=== PATIENT | male | born 1980 | race Caucasian/White ===

== ENCOUNTER 2017-07-13 03:41 | Observation (INO) | payer BC ==
[~2017-07-13] VITALS: Ht 182.9 cm; Wt 82.7 kg
[2017-07-13 03:49] VITALS: BP 110/70; PULSE 70; RESP 16; O2SAT 95
[2017-07-13 03:59] VITALS: BP 117/63; PULSE 85; RESP 16; O2SAT 95
--- NOTE | 2017-07-13 03:59 | PD ---
HPI Chief Complaint: Chest Pain Time Seen by Provider: 03:47 Travel History International Travel<30 days: No Contact w/Intl Traveler<30days: No Traveled to known affect area: No History of Present Illness HPI [place] [employer] [place] patient developed left-sided chest pain. Described as sharp, relieved by pressing on it rated as a 8 out of 10, patient has a history of smoking cigarettes and occasional alcohol drinking which was undertaken today during the festival. Patient was picked up by EMS and given aspirin, nitro sublingual which improved pain and the rate is down to 2 out of 10 No known drug allergies Smokes 1 pack a day cigarettes, occasional marijuana, daily alcohol use. Only significant past surgical history is vikash in the right leg and the left leg fibroma removed [facility] Social History Tobacco Use: No Allergies-Medications (Allergen,Severity, Reaction): Coded Allergies: No Known Allergies (Unverified , 07/13/17) Reported Meds & Prescriptions Reported Meds & Active Scripts Active No Active Prescriptions or Reported Medications Review of Systems General / Constitutional: No: Fever Eyes: No: Visual changes HENT: No: Headaches Cardiovascular: Positive: Chest Pain or Discomfort Respiratory: No: Shortness of Breath Gastrointestinal: No: Abdominal Pain Genitourinary: No: Dysuria Musculoskeletal: No: Pain Skin: No Rash Neurologic: No: Weakness Psychiatric: No: Depression Endocrine: No: Polydipsia Hematologic/Lymphatic: No: Easy Bruising Physical Exam Narrative GENERAL: SKIN: Warm and dry. HEAD: Atraumatic. Normocephalic. EYES: Pupils equal and round. No scleral icterus. No injection or drainage. ENT: No nasal bleeding or discharge. Mucous membranes pink and moist. NECK: Trachea midline. No JVD. CARDIOVASCULAR: Regular rate and rhythm. RESPIRATORY: No accessory muscle use. Clear to auscultation. Breath sounds equal bilaterally. GASTROINTESTINAL: Abdomen soft, non-tender, nondistended. MUSCULOSKELETAL: Extremities without clubbing, cyanosis, or edema. No obvious deformities. NEUROLOGICAL: Awake and alert. No obvious cranial nerve deficits. Motor grossly within normal limits. Five out of 5 muscle strength in the arms and legs. Normal speech. PSYCHIATRIC: Appropriate mood and affect; insight and judgment normal. Data Data Last Documented VS Orders Orders Electrocardiogram (07/13/17 03:47) B-Type Natriuretic Peptide (07/13/17 03:47) Ckmb (Isoenzyme) Profile (07/13/17 03:47) Complete Blood Count With Diff (07/13/17 03:47) Comprehensive Metabolic Panel (07/13/17 03:47) D-Dimer (07/13/17 03:47) Prothrombin Time / Inr (Pt) (07/13/17 03:47) Act Partial Throm Time (Ptt) (07/13/17 03:47) Troponin I (07/13/17 03:47) Lipase (07/13/17 03:47) Chest, Single Ap (07/13/17 03:47) Ecg Monitoring (07/13/17 03:47) Bilateral Bp Monitoring (07/13/17 03:47) Iv Access Insert/Monitor (07/13/17 03:47) Oximetry (07/13/17 03:47) CKMB (07/13/17 04:00) CKMB% (07/13/17 04:00) Drug Screen, Random Urine (07/13/17 05:13) Alcohol (Ethanol) (07/13/17 05:13) Salicylates (Aspirin) (07/13/17 05:13) Tylenol (Acetaminophen) (07/13/17 05:13) Aspirin Chew (Aspirin Chew) (07/13/17 05:45) Morphine Inj (Morphine Inj) (07/13/17 05:45) Nitroglycerin 2% Oint (Nitroglycerin 2% (07/13/17 05:45) Sodium Chlorid 0.9% 500 Ml Inj (Ns 500 M (07/13/17 05:45) Admit Order (Ed Use Only) (07/13/17 05:56) Labs Laboratory Tests Test 07/13/17 04:00 White Blood Count 10.9 TH/MM3 Red Blood Count 5.24 MIL/MM3 Hemoglobin 16.1 GM/DL Hematocrit 47.1 % Mean Corpuscular Volume 89.8 FL Mean Corpuscular Hemoglobin 30.8 PG Mean Corpuscular Hemoglobin Concent 34.3 % Red Cell Distribution Width 14.1 % Platelet Count 261 TH/MM3 Mean Platelet Volume 6.9 FL Neutrophils (%) (Auto) 36.2 % Lymphocytes (%) (Auto) 48.4 % Monocytes (%) (Auto) 7.1 % Eosinophils (%) (Auto) 7.6 % Basophils (%) (Auto) 0.7 % Neutrophils # (Auto) 3.9 TH/MM3 Lymphocytes # (Auto) 5.3 TH/MM3 Monocytes # (Auto) 0.8 TH/MM3 Eosinophils # (Auto) 0.8 TH/MM3 Basophils # (Auto) 0.1 TH/MM3 CBC Comment AUTO DIFF Differential Total Cells Counted 100 Neutrophils % (Manual) 37 % Lymphocytes % 46 % Monocytes % 4 % Eosinophils % 9 % Basophils % 3 % Neutrophils # (Manual) 4.1 TH/MM3 Myelocytes 1 % Differential Comment FINAL DIFF MANUAL Platelet Estimate NORMAL Platelet Morphology Comment NORMAL Prothrombin Time 9.6 SEC Prothromb Time International Ratio 0.9 RATIO Activated Partial Thromboplast Time 27.3 SEC D-Dimer Quantitative (PE/DVT) 0.36 MG/L FEU Blood Urea Nitrogen 10 MG/DL Creatinine 0.95 MG/DL Random Glucose 101 MG/DL Total Protein 7.6 GM/DL Albumin 3.9 GM/DL Calcium Level 7.8 MG/DL Alkaline Phosphatase 60 U/L Aspartate Amino Transf (AST/SGOT) 27 U/L Alanine Aminotransferase (ALT/SGPT) 39 U/L Total Bilirubin 0.2 MG/DL Sodium Level 144 MEQ/L Potassium Level 3.7 MEQ/L Chloride Level 111 MEQ/L Carbon Dioxide Level 19.2 MEQ/L Anion Gap 14 MEQ/L Estimat Glomerular Filtration Rate 91 ML/MIN Total Creatine Kinase 386 U/L Creatine Kinase MB 4.4 NG/ML Creatine Kinase MB % 1.1 % Troponin I LESS THAN 0.02 NG/ML B-Type Natriuretic Peptide 12 PG/ML Lipase 379 U/L Salicylates Level 5.2 MG/DL Acetaminophen Level LESS THAN 2.0 MCG/ML Ethyl Alcohol Level 294 MG/DL [facility] Medical Decision Making Medical Screen Exam Complete: Yes Emergency Medical Condition: Yes Medical Record Reviewed: Yes Interpretation(s) Pulse ox with excellent pleth wave, reads on room air to 97 and 100 which is all within normal limits and does not show any evidence of hypoxemia EKG shows normal sinus rhythm, 70 bpm, incomplete right bundle branch block pattern noted, no evidence of any ST elevation [place] noted Differential Diagnosis Pneumonia versus pneumothorax versus STEMI versus non-STEMI versus PE versus chest wall Narrative Course No leukocytosis, no anemia, normal platelet count, mild lymphocytosis of 48% Coagulations within normal limits D-dimer is negative Electrolytes are all within normal limits Normal liver and pancreatic functions Negative troponin, normal beta natruretic peptide All findings discussed with patient and significant other, the patient was recommended to stay be placed in the chest pain center however the patient did not want to stay, despite the family member also attempting to get him to stay. AMA: The risks of leaving against medical advice without further evaluation treatment were discussed with the patient. These risks include cardiac dysfunction, cardiac dysrhythmia, possible heart attack, possible stroke or . The patient indicated understanding of these risks and appeared to have the capacity to make this decision. Diagnosis Primary Impression: Atypical chest pain Additional Impression: AMA Scripts No Active Prescriptions or Reported Meds Disposition: 07 AGAINST MEDICAL ADVICE Haroon Dean MD July 13, 2017 03:59
[2017-07-13 04:18] LABS: AUTOMATED NEUTROPHIL # 3.9 TH/MM3 (1.8-7.7); BASOPHIL # 0.1 TH/MM3 (0-0.2); BASOPHIL % 0.7 % (0.0-2.0); EOSINOPHIL # 0.8 TH/MM3 (0-0.4); EOSINOPHIL % 7.6 % (0.0-4.0); HEMATOCRIT 47.1 % (39.0-51.0); HEMOGLOBIN 16.1 GM/DL (13.0-17.0); LYMPH % 48.4 % (9.0-44.0); LYMPHOCYTE # 5.3 TH/MM3 (1.0-4.8); MEAN CELL VOLUME 89.8 FL (80.0-100.0); MEAN CORPUSCULAR HEMOGLOBIN 30.8 PG (27.0-34.0); MEAN CORPUSCULAR HGB CONC 34.3 % (32.0-36.0); MEAN PLATELET VOLUME 6.9 FL (7.0-11.0); MONO % 7.1 % (0.0-8.0); MONOCYTE # 0.8 TH/MM3 (0-0.9); NEUT % 36.2 % (16.0-70.0); PLATELET COUNT 261 TH/MM3 (150-450); RED BLOOD COUNT 5.24 MIL/MM3 (4.50-5.90); RED CELL DISTRIBUTION WIDTH 14.1 % (11.6-17.2); WHITE BLOOD COUNT 10.9 TH/MM3 (4.0-11.0)
--- NOTE | 2017-07-13 04:22 | RADRPT ---
EXAM DATE: 07/13/2017 4:12 AM EDT AGE/SEX: 36 years / Male INDICATIONS: Chest pain. CLINICAL DATA: This is the patient's initial encounter. Patient reports that signs and symptoms have been present for 1 day and indicates a pain score of 7/10. MEDICAL/SURGICAL HISTORY: None. None. COMPARISON: No prior [place] exams available for comparison. FINDINGS: A single AP view of the chest demonstrates the lungs to be symmetrically aerated without evidence of mass, infiltrate or effusion. The cardiomediastinal contours are unremarkable. Osseous structures a re intact. CONCLUSION: No evidence of acute cardiopulmonary disease. Electronically signed by: Marco Antonio Rock MD 07/13/2017 4:20 AM EDT
[2017-07-13 04:28] LABS: INTERNATIONAL NORMALIZED RATIO 0.9 RATIO; PROTHROMBIN TIME - PATIENT 9.6 SEC (9.8-11.6)
[2017-07-13 04:29] LABS: D-DIMER 0.36 MG/L FEU (0.00-0.50)
[2017-07-13 04:41] LABS: ALBUMIN 3.9 GM/DL (3.4-5.0); ALT (GPT) 39 U/L (12-78); AST (GOT) 27 U/L (15-37); BICARBONATE 19.2 MEQ/L (21.0-32.0); BLOOD UREA NITROGEN 10 MG/DL (7-18); CALCIUM 7.8 MG/DL (8.5-10.1); CHLORIDE 111 MEQ/L (98-107); CREATININE 0.95 MG/DL (0.60-1.30); GLOMERULAR FILTRATION RATE 91 ML/MIN (>89); GLUCOSE,RANDOM 101 MG/DL (74-106); SODIUM (NA) 144 MEQ/L (136-145)
[2017-07-13 04:45] LABS: ALKALINE PHOSPHATASE 60 U/L (45-117); TOTAL BILIRUBIN ADULT 0.2 MG/DL (0.2-1.0); TOTAL PROTEIN 7.6 GM/DL (6.4-8.2); TROPONIN I LESS THAN 0.02 NG/ML (0.02-0.05)
[2017-07-13 04:56] LABS: BASOPHILS 3 % (0-2); LYMPHOCYTES 46 % (9-44); MONOCYTES 4 % (0-8); MYELOCYTES 1 % (0-0); NEUTROPHIL # MANUAL DIFF 4.1 TH/MM3 (1.8-7.7); POLYS (SEG NEUTROPHILS) 37 % (16-70)
[2017-07-13] MEDS ORDERED: ASPIRIN 81 MG CHEW TAB PO ONE ×2 (05:45→06:15)
[2017-07-13] MEDS ORDERED: MORPHINE SULFATE 4 MG/ML INJ IV PUSH ONE (05:45)
[2017-07-13] MEDS ORDERED: NITROGLYCERIN 2% OINT 1 GM PACKET TOP ONE (05:45)
[2017-07-13] MEDS ORDERED: SODIUM CHLORID 0.9% 500 ML INJ 500 ML IV ONE (05:45)
[2017-07-13] MEDS ORDERED: NICOTINE 21 MG/24 HR PATCH T-DERMAL ONE (06:15)
[2017-07-13] MEDS ORDERED: NITROGLYCERIN 0.4 MG SL 25 TABS/BTL SL PRN (06:15)
[2017-07-13] MEDS ORDERED: MORPHINE SULFATE 4 MG/ML INJ IV PUSH PRN (06:15)
[2017-07-13] MEDS ORDERED: SODIUM CHLORIDE 0.9% FLUSH 10 ML FLUSH IV FLUSH PRN (06:15)
[2017-07-13 06:27] VITALS: BP 120/80; PULSE 87; RESP 16; RESP 17; O2SAT 97
[2017-07-13 06:34] LABS: ACETAMINOPHEN LESS THAN 2.0 MCG/ML (10.0-30.0)
[2017-07-13 07:34] VITALS: BP 111/75; PULSE 74; RESP 21; O2SAT 96
[2017-07-13] MEDS ORDERED: SODIUM CHLORIDE 0.9% FLUSH 10 ML FLUSH IV FLUSH SCH (09:00)
[2017-07-13] MEDS ORDERED: SODIUM CHLOR 0.9% 1000 ML INJ 1,000 ML IV ONE (09:27)
--- NOTE | 2017-07-13 09:29 | HHI.HP ---
HPI Primary Care Physician Unknown Chief Complaint Chest pain History of Present Illness This is a 36-year-old male that presents to ED via [facility] with complaint of chest discomfort that began around midnight. States he is here for the [employer] music festival. States he has been drinking a lot of alcohol. His alcohol level in the ED was 294. But states he was doing nothing exertional when left upper chest discomfort began. States it is a stabbing discomfort when it is at a higher level but it is an ache at a lower level. The discomfort has never resolved. He has been constant. Initially the discomfort would improve when he would press against the area but states he has pressed together so much that now the area is sore. Denies shortness of breath, nausea, or diaphoresis. Review of Systems General: Patient denies fevers, chills, and recent travel. HEENT: Patient denies headache, sore throat, difficulty swallowing. Cardiovascular: Has the chest discomfort as mentioned above. Denies sensation of heart beating rapidly or irregularly. No syncope. Respiratory: Denies shortness of breath or inspirational chest discomfort. Denies coughing wheezing or hemoptysis. GI: Patient denies nausea, vomiting, diarrhea, abdominal pain, bloody stools. Musculoskeletal: Patient denies joint pain or edema. Denies calf pain or edema. Neurovascular: Patient denies numbness, tingling, weakness in extremities. Denies headache. Endocrine: Denies polyuria and polydipsia. Hematologic: Denies easy bruising. Skin: Denies rash or itching. Past Family Social History Allergies: Coded Allergies: No Known Allergies (Unverified , 07/13/17) Past Medical History Tobacco abuse. Alcohol abuse. Denies hypertension, hyperlipidemia, diabetes, and CAD. Past Surgical History Denies prior surgeries. Reported Medications Reported Meds & Active Scripts Active No Active Prescriptions or Reported Medications Active Ordered Medications Current Medications Medications (Trade) Dose Ordered Sig/Iris Route Start Time Stop Time Status Last Admin (NS Flush) 2 ml UNSCH PRN IV FLUSH 07/13/17 06:15 (NS Flush) 2 ml BID IV FLUSH 07/13/17 09:00 (Morphine Inj) 2 mg Q4H PRN IV PUSH 07/13/17 06:15 07/13/17 07:40 (Nitrostat Sl) 0.4 mg Q5M PRN SL 07/13/17 06:15 Family History Denies family history of CAD. Social History Smokes 1 pack of cigarettes daily for 20 years. Has an average 6 beers per day but states he drank more last evening at the [employer] festival. His alcohol level is 294. States he smokes marijuana daily. Denies other illicit drugs. Physical Exam Vital Signs Vital Signs Date Time Temp Pulse Resp B/P (MAP) Pulse Ox O2 Delivery O2 Flow Rate FiO2 07/13/17 07:34 74 21 111/75 (87) 96 Room Air 07/13/17 06:27 17 97 Room Air 07/13/17 06:27 87 16 120/80 (93) 97 Room Air 07/13/17 03:59 85 16 117/63 (81) 95 Room Air 07/13/17 03:49 70 16 110/70 (83) 95 Physical Exam GENERAL: This is a well-nourished, well-developed patient, in no apparent distress. Patient speaks in clear complete sentences. Patient is pleasant. HEENT: Head is atraumatic and normocephalic. Neck is supple without lymphadenopathy and trachea is midline. No JVD or carotid bruits. CARDIOVASCULAR: Regular rate and rhythm without murmurs, gallops, or rubs. RESPIRATORY: He has diffuse wheezing and scattered rhonchi. Breath sounds equal bilaterally. No rales. Chest wall is nontender. No use of accessory muscles. GASTROINTESTINAL: Abdomen is nontender, nondistended. Abdomen soft. No obvious pulsatile mass or bruit. No CVA tenderness. Strong femoral pulses bilaterally. Normal bowel sounds in all quadrants. MUSCULOSKELETAL: Patient is moving upper and lower extremities freely. No calf tenderness or edema, no Homans sign. Strong pulses in upper and lower extremities. NEUROLOGICAL: Patient is alert and oriented. Cranial nerves 2-12 are grossly intact. No focal deficits and speech is clear. SKIN: No rash and turgor is normal. Laboratory Laboratory Tests Test 07/13/17 04:00 07/13/17 07:00 White Blood Count 10.9 Red Blood Count 5.24 Hemoglobin 16.1 Hematocrit 47.1 Mean Corpuscular Volume 89.8 Mean Corpuscular Hemoglobin 30.8 Mean Corpuscular Hemoglobin Concent 34.3 Red Cell Distribution Width 14.1 Platelet Count 261 Mean Platelet Volume 6.9 Neutrophils (%) (Auto) 36.2 Lymphocytes (%) (Auto) 48.4 Monocytes (%) (Auto) 7.1 Eosinophils (%) (Auto) 7.6 Basophils (%) (Auto) 0.7 Neutrophils # (Auto) 3.9 Lymphocytes # (Auto) 5.3 Monocytes # (Auto) 0.8 Eosinophils # (Auto) 0.8 Basophils # (Auto) 0.1 CBC Comment AUTO DIFF Differential Total Cells Counted 100 Neutrophils % (Manual) 37 Lymphocytes % 46 Monocytes % 4 Eosinophils % 9 Basophils % 3 Neutrophils # (Manual) 4.1 Myelocytes 1 Differential Comment FINAL DIFF MANUAL Platelet Estimate NORMAL Platelet Morphology Comment NORMAL Prothrombin Time 9.6 Prothromb Time International Ratio 0.9 Activated Partial Thromboplast Time 27.3 D-Dimer Quantitative (PE/DVT) 0.36 Blood Urea Nitrogen 10 Creatinine 0.95 Random Glucose 101 Total Protein 7.6 Albumin 3.9 Calcium Level 7.8 Alkaline Phosphatase 60 Aspartate Amino Transf (AST/SGOT) 27 Alanine Aminotransferase (ALT/SGPT) 39 Total Bilirubin 0.2 Sodium Level 144 Potassium Level 3.7 Chloride Level 111 Carbon Dioxide Level 19.2 Anion Gap 14 Estimat Glomerular Filtration Rate 91 Total Creatine Kinase 386 Creatine Kinase MB 4.4 Creatine Kinase MB % 1.1 Troponin I LESS THAN 0.02 LESS THAN 0.02 B-Type Natriuretic Peptide 12 Lipase 379 Salicylates Level 5.2 Acetaminophen Level LESS THAN 2.0 Ethyl Alcohol Level 294 Result Diagram: 07/13/17 0400 07/13/17 0400 Imaging Last 48 hours Impressions Chest X-Ray 07/13/17 0347 Signed Impressions: CONCLUSION: No evidence of acute cardiopulmonary disease. Course EKS RBBB without significant ST segment depressions or elevations. Caprini VTE Risk Assessment Caprini VTE Risk Assessment: No/Low Risk (score <= 1) Caprini Risk Assessment Model Point Value = 1 Point Value = 2 Point Value = 3 Point Value = 5 Age 41-60 Minor surgery BMI > 25 kg/m2 Swollen legs Varicose veins or History of unexplained or recurrent spontaneous Oral contraceptives or hormone replacement Sepsis (< 1 month) Serious lung disease, including pneumonia (< 1 month) Abnormal pulmonary function Acute myocardial infarction Congestive heart failure (< 1 month) History of inflammatory bowel disease Medical patient at bed rest Age 61-74 Arthroscopic surgery Major open surgery (> 45 min) Laparoscopic surgery (> 45 min) Malignancy Confined to bed (> 72 hours) Immobilizing plaster cast Central venous access Age >= 75 History of VTE Family history of VTE Factor V Leiden Prothrombin 56514H Lupus anticoagulant Anticardiolipin antibodies Elevated serum homocysteine Heparin-induced thrombocytopenia Other congenital or acquired thrombophilia Stroke (< 1 month) Elective arthroplasty Hip, pelvis, or leg fracture Acute spinal cord injury (< 1 month) Prophylaxis Regimen Total Risk Factor Score Risk Level Prophylaxis Regimen 0-1 Low Early ambulation 2 Moderate Order ONE of the following: *Sequential Compression Device (SCD) *Heparin 5000 units SQ BID 3-4 Higher Order ONE of the following medications: *Heparin 5000 units SQ TID *Enoxaparin/Lovenox 40 mg SQ daily (WT < 150 kg, CrCl > 30 mL/min) *Enoxaparin/Lovenox 30 mg SQ daily (WT < 150 kg, CrCl > 10-29 mL/min) *Enoxaparin/Lovenox 30 mg SQ BID (WT < 150 kg, CrCl > 30 mL/min) AND/OR *Sequential Compression Device (SCD) 5 or more Highest Order ONE of the following medications: *Heparin 5000 units SQ TID (Preferred with Epidurals) *Enoxaparin/Lovenox 40 mg SQ daily (WT < 150 kg, CrCl > 30 mL/min) *Enoxaparin/Lovenox 30 mg SQ daily (WT < 150 kg, CrCl > 10-29 mL/min) *Enoxaparin/Lovenox 30 mg SQ BID (WT < 150 kg, CrCl > 30 mL/min) AND *Sequential Compression Device (SCD) Assessment and Plan Assessment and Plan * Chest pain: Patient will serial cardiac enzymes and EKGs for ruling out purposes. He will be seen by Dr. Ledbetter of cardiology in the chest pain center. Likely undergo a Osvaldo protocol ETT. Patient will be discharged home if the stress test is nonischemic with instructions to follow-up with PCP. Patient was given duo nebs prior to treadmill. Return to ED for interval issues. * Tobacco abuse: Patient has been counseled on the importance of smoking cessation. Patient is stable at this time. He is agreeable to this plan. Billy De La Torre July 13, 2017 09:29
[2017-07-13] MEDS ORDERED: cloNIDine HCL 0.1 MG TAB PO PRN (09:30)
[2017-07-13] MEDS ORDERED: RESP: ALBUTEROL 2.5 MG/IPRATROPIUM 0.5 MG NEB (SCH) INH ONE (09:30)
[2017-07-13] MEDS ORDERED: ALPRAZolam 0.25 MG TAB PO PRN (10:30)
--- NOTE | 2017-07-13 12:36 | TR ---
Date Performed: 07/13/2017 Time Performed: 11:30:51 DOCTOR: Obed Ledbetter DRUG LIST: CLINICAL HISTORY: REASON FOR TEST: CHEST PAIN REASON FOR ENDING: OBSERVATION: CONCLUSION: NIGHAT PROTOCOL. THE PATIENT'S CONSTANT CP DID NOT CHANGE DURING STRESS TEST.Maximum AG=026 Maximum EL=027/78 Total Exercise Time=10:30 COMMENTS: Conclusion: Normal treadmill exercise. No evidence of ischemia.
--- NOTE | 2017-07-13 12:37 | HHI.DCPOC ---
Discharge Care Plan Diagnosis: (1) Chest pain (2) Tobacco abuse Goals to Promote Your Health * To prevent worsening of your condition and complications * To maintain your health at the optimal level Directions to Meet Your Goals Take your medications as prescribed Follow your dietary instruction Follow activity as directed Keep your appointments as scheduled Take your immunizations and boosters as scheduled If your symptoms worsen call your PCP, if no PCP go to Urgent Care Center or Emergency Room Smoking is Dangerous to Your Health. Avoid second hand smoke Call the 24-hour hour crisis hotline for domestic abuse at Billy De La Torre July 13, 2017 12:37
[2017-07-13 12:40] VITALS: BP 119/75; PULSE 88; RESP 18; TEMP 98; O2SAT 95
[2017-07-13] MEDS ORDERED: RESP: ALBUTEROL 2.5 MG/IPRATROPIUM 0.5 MG NEB (PRN) INH (13:00)
[2017-07-13] MEDS ORDERED: KETOROLAC TROMETHAMINE 30 MG/ML (IVP) VIAL IVP ONE (13:30)
--- NOTE | 2017-07-13 15:43 | EKG ---
Date Performed: 07/13/2017 Time Performed: 09:55:27 PTAGE: 36 years EKG: Sinus rhythm POSSIBLE LEFT ATRIAL ENLARGEMENT POSSIBLE RIGHT VENTRICULAR CONDUCTION DELAY BORDERLINE ECG PREVIOUS TRACING : 07/13/2017 06.51 Since previous tracing, no significant change noted DOCTOR: Obed Ledbetter Interpretating Date/Time 07/13/2017 15:42:27
--- NOTE | 2017-07-13 15:44 | EKG ---
Date Performed: 07/13/2017 Time Performed: 03:52:31 PTAGE: 36 years EKG: Sinus rhythm POSSIBLE LEFT ATRIAL ENLARGEMENT POSSIBLE RIGHT VENTRICULAR CONDUCTION DELAY BORDERLINE ECG NO PREVIOUS TRACING DOCTOR: Obed Ledbetter Interpretating Date/Time 07/13/2017 15:43:30
--- NOTE | 2017-07-13 15:52 | EKG ---
Date Performed: 07/13/2017 Time Performed: 06:51:05 PTAGE: 36 years EKG: Sinus rhythm POSSIBLE RIGHT VENTRICULAR CONDUCTION DELAY BORDERLINE ECG Since PREVIOUS TRACING , no significant change noted DOCTOR: Obed Ledbetter Interpretating Date/Time 07/13/2017 15:52:05
== END 2017-07-13 14:55 | disposition home or self-care (01) ==
LOC: NEPC 03:41 → NEDA 05:58 → NEPFCDU 11:56
PROVIDERS: ADMIT Internal Medicine Interventional Cardiology; ATTEND Internal Medicine Interventional Cardiology
DX: R07.89 Other chest pain (principal); F17.210 Nicotine dependence, cigarettes, uncomplicated; F12.90 Cannabis use, unspecified, uncomplicated; R94.31 Abnormal electrocardiogram [ECG] [EKG]
CPT/HCPCS: 71045; 80053; 80307; 82550; 82552; 83690; 83880; 84484; 85007; 85027; 85379; 85610; 85730; 93005; 93017; 94664; 96361; 96374; 96375; 96376; 99285; G0378; J1885; J2270; J7030; J7040